=== PATIENT | female | born 1995 | race African-American/Black ===

== ENCOUNTER 2018-03-19 14:26 | Emergency (ER) | payer OTHER, MEDICAID ==
[~2018-03-19] VITALS: Ht 162.6 cm; Wt 90.7 kg
[2018-03-19] MEDS ORDERED: VENTOLIN HFA 1818 GM INH (14:39)
[2018-03-19] MEDS ORDERED: NAPROSYN500 MG PO (15:03)
[2018-03-19 15:42] LABS: URINE BILIRUBIN NEGATIVE (Negative); URINE BLOOD NEGATIVE (Negative); URINE CLARITY CLEAR; URINE COLOR YELLOW; URINE GLUCOSE-RANDOM NEGATIVE (Negative); URINE KETONES NEGATIVE (Negative); URINE LEUKOCYTES-REFLEX NEGATIVE (Negative); URINE NITRITE-REFLEX NEGATIVE (Negative); URINE PROTEIN NEGATIVE (Negative); URINE UROBILINOGEN 0.2 E.U./dl (0.2-1.0)
[2018-03-19 16:04] VITALS: BP 105/68
== END 2018-03-19 16:05 | disposition home or self-care (01) ==
LOC: M.ERS 14:26
PROVIDERS: Physician Assistant
DX: R10.2 Pelvic and perineal pain (principal); J45.909 Unspecified asthma, uncomplicated